=== PATIENT | male | born 1945 | race Caucasian/White ===

== ENCOUNTER → 2021-03-28 11:20 | Outpatient (CLI) | payer MEDICARE, OTHER, SELFPAY ==
[2021-03-28 12:27] LABS: COVID19 -Nasal RAPID Negative (Negative)
== END ==
PROVIDERS: Visit Provider Student in an Organized Health Care Education/Training Program
DX: Z01.812 Encounter for preprocedural laboratory examination (principal); Z20.822 Contact with and (suspected) exposure to COVID-19
CPT/HCPCS: 87635; C9803

== ENCOUNTER → 2021-03-29 14:42 | Outpatient (CLI) | payer MEDICARE, OTHER, SELFPAY ==
--- NOTE | 2021-03-29 18:11 | DI.NM.S_ITS ---
DATE OF SERVICE: PROCEDURE: Exercise stress test. DATE OF STUDY: March 29, 2021. INDICATIONS: Chest pain with underlying bifascicular block. CARDIAC STRESS: The patient underwent exercise stress test under the supervision of an attending staff. The patient walked on Storm protocol for 10 minutes, achieved 89 percent of target heart rate. Baseline blood pressure 140/80. Peak blood pressure 188/96. The patient achieved 12.8 METs of workload and MAIN -53 percent. Baseline rhythm was sinus with right bundle branch block, left anterior fascicular block, and secondary repolarization changes. During stress, no convincing ischemic changes seen. No new significant arrhythmias seen. CONCLUSION: Exercise stress test is negative for obvious inducible ischemia. The patient has baseline right bundle branch block and left anterior fascicular block with sinus rhythm. Excellent exercise tolerance. MAIN -53 percent. Achieved 12.8 METs of workload. Target heart rate 89 percent. Resting blood pressure 140/80 and peak blood pressure 188/96 mmHg. No anginal symptoms. Overall, this is a low-risk exercise stress test. Thierry Rosario - DESIREE/sudhir/rowan doc#: [id number]/job#: [id number] dd: 03/29/2021 17:41:00 dt: 03/29/2021 17:57:00 DICTATING /COPIES TO: Orestes Carter MD COPIES MNE: FABIAN;
== END ==
PROVIDERS: PCP Family Medicine; Referring Provider Family Medicine; Visit Provider Family Medicine
DX: R07.89 Other chest pain (principal); R53.83 Other fatigue
CPT/HCPCS: 93017

== ENCOUNTER → 2023-01-11 12:44 | Outpatient (CLI) | payer MEDICARE, OTHER, SELFPAY ==
[2023-01-11 13:45] LABS: Add Manual Diff / Slide Review NO; Basophils Absolute Auto 0 /uL (0-100); Basophils Percent Auto 0.6 % (0-2); Eosinophils Absolute Auto 200 /uL (0-450); Eosinophils Percent Auto 2.6 % (2-4); Hematocrit 45.1 % (41-53); Hemoglobin 14.7 g/dL (13.5-17.5); Lymphocytes Absolute Auto 1800 /uL (1100-4500); Mean Corpuscular HGB Conc 32.7 % (30-36); Mean Corpuscular Hemoglobin 29.5 PG (26-34); Mean Corpuscular Volume 90.4 fL (80-100); Monocytes Absolute Auto 700 /uL (0-900); Monocytes Percent Auto 9.1 % (3-14); Neutrophils Absolute Auto 4800 /uL (1500-7000); Neutrophils Percent Auto 63.7 % (50-75); Platelet Count 225 X10^3/uL (150-400); Red Blood Cell Count 4.99 X10^6/uL (4.5-5.9); Red Cell Distribution Width 14.7 % (11.6-14.8); White Blood Cell Count 7.5 X10^3/uL (4.5-11.0)
[2023-01-11 14:14] LABS: Blood Urea Nitrogen 29 mg/dL (9-20); Calcium 8.7 mg/dL (8.4-10.2); Carbon Dioxide 33 mmol/L (22-32); Chloride 100 mmol/L (98-107); Glucose 94 mg/dL (80-110); HEMOLYSIS < 15 (0-50); Potassium 4.2 mmol/L (3.4-5.1); Sodium 136 mmol/L (137-145)
[2023-01-11 14:20] LABS: BUN Creatinine Ratio 20.4 (6-22); Estimated Glomerular Filt Rate 52 mL/min (>60)
== END ==
PROVIDERS: PCP Family Medicine; Referring Provider Orthopaedic Surgery; Visit Provider Orthopaedic Surgery
DX: Z01.818 Encounter for other preprocedural examination (principal); Z01.812 Encounter for preprocedural laboratory examination
CPT/HCPCS: 36415; 80048; 85025; 93005

== ENCOUNTER 2023-06-06 07:36 | Inpatient (IN) | payer MEDICARE, OTHER, SELFPAY ==
[2023-05-22 12:58] VITALS: BMI 21.2
[2023-06-06] VITALS (10 sets, daily range): BP systolic 101–134; BP diastolic 52–81; PULSE 65–84; RESP 10–20; TEMP 36.1–36.6; O2SAT 79–100; BMI 21.2
--- NOTE | 2023-06-06 06:34 | DI.RAD.S_ITS ---
PROCEDURE: XR SHOULDER RT 1V INDICATIONS: RTSA TECHNIQUE: 1 views of the shoulder were acquired. COMPARISON: None. FINDINGS: Bones: Expected immediate postoperative appearance, status post reversed total right shoulder arthroplasty. No fractures or dislocations. No suspicious bony lesions. Visualized ribs appear intact. Soft tissues: No suspicious soft tissue calcifications. IMPRESSION: Expected immediate postoperative appearance, status post reverse total right shoulder arthroplasty. Dictated by: Jose Castellanos M.D. on 06/06/2023 at 12:51 Approved by: Jose Castellanos M.D. on 06/06/2023 at 12:52
[2023-06-06] MEDS: ACETAMINOPHEN 325 MG TABLET 975 MG PO (08:26)
[2023-06-06] MEDS: CELECOXIB 200 MG CAPSULE PO (08:26)
[2023-06-06] MEDS: LACTATED RINGERS 1,000 ML 42 ML IV ×2 (08:27→10:31)
--- NOTE | 2023-06-06 08:27 | PM.PREOP ---
Pre-operative Note Interval Note History & Physical reviewed/Exam performed by Physician: Yes Changes to H&P: No
--- NOTE | 2023-06-06 08:41 | SUR.PREOP ---
Block start time [0831] . Monitoring initiated and maintained throughout procedure. Oxygen and medications given per anesthesiologist instructions. Patient remained stable throughout procedure, no adverse reactions noted. Block end time [0836].
[2023-06-06] MEDS: CEFAZOLIN 2 GM/100 ML PREMIX 100 ML IV (08:52)
[2023-06-06] MEDS: TRANEXAMIC ACID 1,000 MG VIAL 1000 MG INJ (09:05)
--- NOTE | 2023-06-06 09:25 | SUR.OPER ---
Beach chair with Skytron shoulder positioner. Lower body on padded OR bed. Head in foam padded head cradle, secured with straps. Non-operative arm secured <90 degrees abduction, wrapped in gelpad. Pillow under knees. Safety belt at thigh. Cloth tape over blanket over lower legs. Tape over torso to secure
--- NOTE | 2023-06-06 09:29 | PM.PNB.1 ---
Peripheral Nerve Block Note Pre-Procedure Reason for block: Attending surgeon request/order for post-op pain management Consent obtained from: Patient Procedure Date of procedure: 06/06/23 Start Time: 08:30 End Time: 08:40 Performed by: Rene Eller Sedation - enter dose in comment field: IV Midazolam (mg) (2) and IV Fentanyl (mcg) (100) Location: Pre-Op Position: Supine Laterality: Right Sterile Technique: Chloraprep Skin Wheal: Lidocaine 1% mL: 2 Gauge: 27 Equipment Single injection - Needle brand, gauge, length: 22g Medications Medications - enter concentration (%) & mL in comment field: Bupivacaine (0.5% 20ml) Test Dose: Negative Incremental aspiration prior to injection: Yes Ultrasound Reason for Ultrasound: U/S guidance used for needle placement and U/S used to visualize spread of anesthetic Image printed/saved/archived: Yes Vital signs VS: - 06/06/23 08:08 06/06/23 08:31 06/06/23 08:36 Temperature 97.8 F Pulse Rate 72 69 65 Respiratory Rate 20 20 18 Blood Pressure 130/81 134/76 127/79 Pulse Oximetry 100 98 97 Oxygen Delivery Method Room Air Room Air Room Air Oxygen Delivery Method Room Air
[2023-06-06] MEDS: BUPIVACAINE 0.25% W/ EPI (PF) 10 ML VIAL INJ (09:57)
--- NOTE | 2023-06-06 11:54 | PM.OP.1 ---
Operative Date/Time/Diagnoses Date of procedure: 06/06/23 Time of procedure: 11:54 Pre-op diagnosis: Right glenohumeral arthritis with dysplastic glenoid Post-op diagnosis: same Procedure & Clinicians Procedure: Right reverse total shoulder arthroplasty Same procedure as scheduled: Yes Indications: Indications: This is a 78-year-old male who has glenohumeral arthritis. Symptoms have been present for years, insidious onset. Patient has failed conservative therapy including injections, physical therapy, anti-inflammatories and activity modification. After extensive discussion in clinic, they wished to go forward with surgery. Risks and benefits were described including the risk of infection, bleeding, damage to internal structures including nerves. We also discussed the risk of failure of surgery and the need for revision surgery as well as the risk of anesthesia. The patient expressed understanding with these risks and wished to go forward with surgery. Surgeon: Nahun Trujillo Garment Tag Stringer: Ed Belle Anesthesia Type: General Operative Notes Findings: Findings: Osteoarthritis of the glenoid and humeral head with 40? of glenoid retroversion as noted on preoperative imaging and under direct visualization Closure Type: primary Specimen(s): none sent Prosthetic devices, grafts, tissues, transplants, or devices: Tornier implants Base plate: 29 full wedge (15 mm), Glenosphere: Standard 36 mm Stem: Perform 3 Poly: +0 concentric Estimated Blood Loss (mL): 50 Procedure in detail: Patient was seen in the preoperative holding unit. The correct right shoulder was identified and marked with my initials. Again we discussed the risks and benefits of surgery and they wished to go forward with surgery. The patient was brought back to the operating room and placed supine on the operating table. Smooth endotracheal intubation was performed by anesthesia. All prominences were padded and they were placed into the beach chair position. Intravenous antibiotics were given. The right shoulder was then prepped with the standard sterile preparation and draping. A time-out was then performed in my initials were again identified on the correct shoulder. 1 g of IV tranexamic acid was given. A standard deltopectoral incision was made. Skin flaps were made. The cephalic vein was identified and retracted laterally. This was protected throughout the remainder of the case. Sharp dissection was made along the deltoid, subacromial and subcoracoid space to release adhesions. The conjoined tendon was identified and the axillary nerve was palpated and continuous using the tug test. It was protected throughout the remainder of the case. A brown retractor was placed underneath the deltoid muscle and a darach retractor underneath the conjoint tendon. The anterior circumflex artery and associated veins on the lower border of the subscapularis were identified and tied off using 0-Vicryl. The biceps tendon was identified in the bicipital groove. This was released from its sheath, and taken from its origin on the glenoid and tied into the pectoralis tendon for a solid tenodesis. We then began a subscapularis peel. The subscapularis was tagged with an Ethibond suture. A 360 degree circumferential release of the subscapularis was performed with protection of the axillary nerve. The coracohumeral ligament was released at the base of the coracoid. The coracoacromial ligament was left intact. The shoulder was then dislocated. Osteophytes were removed using combination of rongeur and osteotome. The rotator cuff was noted to be intact with some thinning and degenerative changes. An intramedullary guide was used set at version of 20?. Using an oscillating saw a conservative humeral head cut was made. Impaction reamers were reamed up to a size 3 stem with a built-in angle 135?. A neck protector was placed. Attention was then turned to the glenoid. After retracting the humeral head posteriorly a circumferential release was performed of the capsule with protection of the axillary nerve. The labrum was then released starting at the biceps anchor and going around the rim a small amount of triceps was released from the inferior glenoid. A center guide pin was then placed using the custom guide, followed by Reamer. Per our preoperative plan, we estimated about 70-75 % coverage with some gapping in the back. I used a per and several drill holes in the back to create bleeding. After adequate cartilage was removed the center drill hole was drilled and measured. Graft from the humeral head was then placed on the back of the porous-coated implant on the full wedge side. The base plate was then implanted and screwed into place. He posterior drill hole was filled in nonlocking followed by superior anterior and inferior in locking fashion. A 36 standard glenosphere was then selected and screwed into place onto the base plate. Turning back to the humerus, the humeral head was delivered and trialed with a 0 concentric. The arm was taken through range of motion and this was felt to be stable. The trial was then removed and a dilute Betadine wash was then performed with 1 L of sterile saline. Before placing the final implant, drill holes were made in the bicipital groove for the subscapularis repair, and sutures were passed through the drill holes. The final stem was then impacted into the humerus. The shoulder was then reduced and again brought through range of motion and was felt to be stable. The interval was then closed using #2 Ethibond. The subscapularis was then repaired using a modified racking hitch with nice loupes. The deltopectoral interval was then closed with #2 Ethibond. The skin was closed with 2-0 PDS and sharon followed by Aquacel dressing. Patient was awoken from anesthesia and brought back to the postoperative recovery unit without issue. They were placed into a sling. Assisting participation: This operation could not have been safely performed (without compromising the technical results or length of the procedure) without the assistance of a skilled surgical garment fitter. The surgical garment fitter was medically necessary for proper positioning, retraction and manipulation of instruments, proper exposure, graft prep, and manipulation of tissue. Complications: none Post-operative Condition: stable Plan for aftercare: Postoperative instructions: Sling to remain on for 6 weeks. No external rotation past neutral for 6 weeks. Okay for him to come off her shower. Okay to shower over the Aquacel dressing. If any water gets underneath the dressing, remove the dressing. First postoperative visit in 2 weeks.
--- NOTE | 2023-06-19 09:26 | P.PCN_ITS ---
Peripheral Nerve Block Note Pre-Procedure Reason for block: Attending surgeon request/order for post-op pain management (R Interscalene Block) Pre-procedure checklist: Patient examined and chart reviewed, Risks, benefits, alternatives of block discussed, questions answered, Verification of anti-coagul ation status, Timeout performed and Standard ASA monitors applied Consent obtained from: Patient Procedure Date of procedure: 06/06/23 Performed by: Rene Eller Sedation - enter dose in comment field: IV Midazolam (mg) (2) and IV Fentanyl (mcg) (100) Location: Pre-Op Position: Supine Laterality: Right Sterile Technique: Chloraprep Skin Wheal: Lidocaine 1% (1) mL: 1 Gauge: 27 Equipment Single injection - Needle brand, gauge, length: 22g Medications Medications - enter concentration (%) & mL in comment field: Bupivacaine (0.5% 20ml) Test Dose: Negative Incremental aspiration prior to injection: Yes Ultrasound Reason for Ultrasound: U/S guidance used for needle placement and U/S used to visualize spread of anesthetic Image printed/saved/archived: Yes Vital signs VS: VSS Oxygen Delivery Method Room Air Oxygen Flow Rate 0
== END 2023-06-06 13:00 | disposition home or self-care (01) | DRG 483 ==
PROVIDERS: Admitting Provider Orthopaedic Surgery; PCP Family Medicine; Referring Provider Orthopaedic Surgery; Visit Provider Orthopaedic Surgery
PROC: 0RRJ00Z Replacement of Right Shoulder Joint with Reverse Ball and Socket Synthetic Substitute, Open Approach (ICD-10-PCS; CPT 23472; principal; 2023-06-06 08:45)
DX: M19.011 Primary osteoarthritis, right shoulder (principal); Q74.0 Other congenital malformations of upper limb(s), including shoulder girdle
CPT/HCPCS: 64450; 73020; C1776; J0330; J0690; J1100; J2250; J2405; J2704; J3010; J3490

== ENCOUNTER → 2024-05-01 13:10 | Outpatient (CLI) | payer MEDICARE, OTHER, SELFPAY ==
--- NOTE | 2024-05-01 13:12 | DI.US.S_ITS ---
PROCEDURE: US ABDOMEN LIMITED INDICATIONS: Right upper quadrant pain TECHNIQUE: Real-time scanning was performed of the abdominal and retroperitoneal organs, with image documentation. COMPARISON: None. FINDINGS: Liver: Liver is normal in size and homogeneous in echotexture. A couple of benign-appearing anechoic cyst without significant complexity, largest measuring 2.6 x 2.0 x 2.2 cm in the right hepatic lobe. Gallbladder: No gallstones. No wall thickening. No pericholecystic edema. Negative sonographic Hernadez's sign. Biliary ducts: Intrahepatic bile ducts are non-dilated. Extrahepatic bile duct caliber measures 7.5 mm. Normal is 6-7 mm or less in diameter, or 10 mm or less post-cholecystectomy. Pancreas: Visualized portions of the pancreas are sonographically normal. Miscellaneous: No free abdominal fluid. IMPRESSION: No gallbladder pathology. Dictated by: Wilfred Golden M.D. on 05/01/2024 at 15:06 Approved by: Wilfred Golden M.D. on 05/01/2024 at 15:09
== END ==
PROVIDERS: PCP Family Medicine; Referring Provider Family Medicine; Visit Provider Family Medicine
DX: K76.89 Other specified diseases of liver (principal); R10.11 Right upper quadrant pain
CPT/HCPCS: 76705